=== PATIENT | female | born 1995 | race Caucasian/White ===

== ENCOUNTER 2017-01-14 18:38 | Emergency (ER) | payer OTHER ==
--- NOTE | ~2017-01-14 | EKG ---
PATIENT: ORBERT TOWNSEND UNIT #: [id number] Ventricular Rate: 114 BPM Atrial Rate: 114 BPM P-R Interval: 122 ms QRS Duration: 92 ms Q-T Interval: 320 ms QTC Calculation(Bezet): 441 ms P [place]: 82 degrees Calculated R [place]: 83 degrees Calculated T [place]: 78 degrees Diagnosis Line: Poor data quality, interpretation may be Diagnosis Line: adversely affected Diagnosis Line: Sinus tachycardia with Fusion complexes Diagnosis Line: Possible Left atrial enlargement Diagnosis Line: Incomplete right bundle branch block Diagnosis Line: Possible Anterior infarct , age undetermined Diagnosis Line: Abnormal ECG Diagnosis Line: When compared with ECG of 02-JUL-2016 22:03, Diagnosis Line: Fusion complexes are now Present Diagnosis Line: Borderline criteria for Anterior infarct are now Diagnosis Line: Present Diagnosis Line: Confirmed by TOÑA SALCEDO MD ([id number]) on Diagnosis Line: 01/17/2017 8:31:02 AM INTERPRETING MD: MATIAS DC
[~2017-01-14 18:38] MED LIST: ACETAMINOPHEN-120 ML PO; BACTRIM DS TABL1 TA1 PO; BACTRIM DS TABL1 TA2 PO; BIRTH CONTROL PILL; DICLOFENAC PO; DOXYCYCLINE HY100 M1 PO; DOXYCYCLINE PO; FLEXERIL10 MG PO; IBUPROFEN800 MG PO; KEFLEX500 M2 PO; LORTAB 5/500 TA1 TA1 PO; NO MEDICATIONS; PERCOCET5/325 PO; ZYRTEC10 M2 PO
[2017-01-14 19:18] LABS: BASOPHIL# 0.1 X10e3 (0-0.3); BASOPHIL% 0.9 % (0-2.5); EOSINOPHIL# 0.1 X10e3 (0-0.7); EOSINOPHIL% 0.9 % (0.0-7.0); HEMATOCRIT 35.3 % (35.0-45.0); HEMOGLOBIN 11.7 gm/dL (12.0-16.0); LYMPHOCYTE# 2.9 X10e3 (1.0-3.5); LYMPHOCYTE% 22.6 % (17.0-45.0); MEAN CELL VOLUME 84.3 FL (83-96); MEAN CORPUSCULAR HEMOGLOBIN 28.1 PG (28-34); MEAN CORPUSCULAR HGB CONC 33.3 g/dL (30-36); MEAN PLATELET VOLUME 7.8 FL (6.5-11.5); MONOCYTE# 1.2 X10e3 (0-1.0); MONOCYTE% 9.3 % (3.0-12.0); NEUTROPHIL# 8.5 X10e3 (1.5-7.1); NEUTROPHIL% 66.3 % (40-75); PLATELET COUNT 238 X10e3 (140-420); RED BLOOD COUNT 4.19 X10e (3.90-5.30); WHITE BLOOD COUNT 12.8 X10e3 (4.0-10.5)
[2017-01-14 19:19] LABS: DIFF IND NO
[2017-01-14 19:32] LABS: ACETAMINOPHEN <10 ug/mL; ALBUMIN SERUM 3.9 g/dL (3.5-5.0); ALCOHOL BLOOD <5 mg/dL (0); ALKALINE PHOSPHATASE 49 U/L (32-92); ALT (SGPT) 232 U/L (10-40); AST (SGOT) 195 U/L (10-42); BILIRUBIN, DIRECT 0.3 mg/dL (0.0-0.2); BILIRUBIN,TOTAL 1.3 mg/dL (0.2-2.0); BLOOD UREA NITROGEN 14 mg/dL (9-23); CALCIUM SERUM 8.9 mg/dL (8.4-10.2); CARBON DIOXIDE 25 mmol/L (22-31); CHLORIDE 105 mmol/L (100-111); CREATININE SERUM 0.7 mg/dL (0.6-1.4); GLOM FILT RATE Estimated 122.1 mL/min (>60); GLUCOSE FASTING 60 mg/dL (70-110); POTASSIUM 3.9 mmol/L (3.5-5.1); PROTEIN TOTAL SERUM 7.7 g/dL (6.0-8.3); SALICYLATE <4.0 mg/dL; SODIUM 137 mmol/L (135-145)
== END 2017-01-15 08:02 | disposition home or self-care (01) ==
LOC: SED 18:38
PROVIDERS: Emergency Medicine
DX: F11.129 Opioid abuse with intoxication, unspecified (principal); F15.129 Other stimulant abuse with intoxication, unspecified
CPT/HCPCS: 36415; 80048; 80076; 82947; 84703; 85025; 93005; 96361; 96372; 96374; 96375; 96376; 99284; G0480; J1200; J2060; J3486